=== PATIENT | female | born 1945 | race Caucasian/White ===

== ENCOUNTER 2016-08-16 04:14 | Inpatient (IN) | payer MEDICARE ==
[2016-08-05 10:36] LABS: HEMATOCRIT 40.5 % (36.0-48.0); HEMOGLOBIN 13.3 g/dL (12.0-16.0)
[2016-08-05 10:46] LABS: BUN (BLOOD UREA NITROGEN) 13 MG/DL (6-23); CALCIUM, SERUM 8.8 MG/DL (8.5-10.4); CHLORIDE, SERUM 100 MMOL/L (96-112); CO2 (CARBON DIOXIDE) 29 MMOL/L (24-34); CREATININE 0.84 MG/DL (0.55-1.02); GFR AFRICAN AMERICAN 80 ML/MIN (>=60); GFR NON AFRICAN AMERICAN 69 ML/MIN (>=60); GLUCOSE, SERUM 150 MG/DL (60-99); POTASSIUM, SERUM 3.7 MMOL/L (3.5-5.3); SODIUM, SERUM 137 MMOL/L (135-148)
--- NOTE | ~2016-08-16 | OP ---
Record Of Operation [facility] [address] [place]. [address] NAME: MISTY FONG : 43 STATUS : ADM IN PAT#: [id number] AGE: 71 ADM/REG DATE : 08/16/16 MR#: [id number] REPORT SERV DATE: 08/18/16 DICTATED BY: NAOMI VILLASENOR II DATE: 08/18/16 REPORT STATUS : Draft TRANSCRIBED BY: MODJerod DATE: 08/18/16 DATE OF PROCEDURE: 08/16/2016 PREOPERATIVE DIAGNOSES: 1. Right lower extremity radiculopathy. 2. L4-5 stenosis, L5-S1 stenosis. 3. L5-S1 spondylolisthesis. POSTOPERATIVE DIAGNOSES: 1. Right lower extremity radiculopathy. 2. L4-5 stenosis, L5-S1 stenosis. 3. L5-S1 spondylolisthesis. PROCEDURE: 1. Lumbar laminectomy and facetectomy, L4-5, L5-S1. 2. Posterolateral arthrodesis, L4-5, L5-S1. 3. Posterior segmental instrumentation, L4-5, L5-S1. 4. Use of local autograft, allograft substitute, and bone morphogenic protein. 5. Use of the microscope and stereotactic spinal imaging. SURGEON: Naomi Villasenor M.D. FLUIDS: 1300 mL LR. ESTIMATED BLOOD LOSS: 100 mL. DRAINS: One drain. COMPLICATIONS: A tiny flash of CSF (1 mm durotomy), repaired primarily. PREOPERATIVE HISTORY: This is a very friendly 71-year-old female, who reports severe pain radiating from the right buttock and the right leg. She had some pain on the left, but not as severe. We discussed the pros and cons of continuing nonoperative care versus surgery. DESCRIPTION OF PROCEDURE: After informed consent was obtained, the patient was brought to the operating room at her request, and general anesthesia achieved. She was placed in the prone position. The back was prepped and draped in a sterile fashion. The stereotactic spinal pin was placed on the left. The intraoperative CT scan was completed. The minimally invasive incision was now performed on the right at L4-5 and L5-S1. The microscope was brought into place and under microscopic visualization with the assistance of stereotactic guidance, the laminectomy and facetectomy was carried out at L4-5. Surprisingly, we identified quite severe compression of the thecal sac including the L4 and L5 nerve roots. This was more severe than I had suspected based on the MRI. The MRI did show stenosis, but not to this severe degree. The L4 and L5 nerve roots were well decompressed. This took a significant amount of time. The spinal laminar junction was also fully taken down to allow access to the central canal. We did encounter a 1 mm durotomy on the dorsal lateral aspect Record Of Operation [facility] [address] [place]. [address] NAME: MISTY FONG : 43 STATUS : ADM IN PAT#: [id number] AGE: 71 ADM/REG DATE : 08/16/16 MR#: [id number] REPORT SERV DATE: 08/18/16 DICTATED BY: NAOMI VILLASENOR II DATE: 08/18/16 REPORT STATUS : Draft TRANSCRIBED BY: KSENIA DATE: 08/18/16 at L4-5. The Nurolon stitch was placed. The dura was friable as anticipated given her age. We were able to obtain a reasonable closure. At this point, we then worked down to the L5-S1 level where the facet was removed and the L5 and S1 nerve roots well decompressed. The area was now fully irrigated. Pedicle screws were now applied bilaterally. Percutaneous screws were placed on the left. A CT scan was then performed. Unfortunately, it showed the hardware being slightly inferior at all three levels. This likely was due to some issue with the stereotactic system. We then revise this instrumentation and the screws now found to be more acceptably placed. The rods were then well assembled and final tightening performed. The local autograft, allograft substitute, and bone morphogenic protein were then placed over the decorticated surfaces at L4, L5, and the sacral ala. A deep drain was placed followed by standard closure. The patient was then extubated and transferred to PACU in stable condition. HUGO/KSENIA Naomi Villasenor II, M.D. / [id number] CC: Brett Leslie II, M.D.
--- NOTE | ~2016-08-16 | DS ---
Discharge Summary [facility] [address] [place]. [address] NAME: MISTY FONG : 43 STATUS : DIS IN PAT#: [id number] AGE: 71 ADM/REG DATE : 08/16/16 MR#: [id number] REPORT SERV DATE: 08/31/16 DICTATED BY: NAOMI VILLASENOR II DATE: 08/30/16 REPORT STATUS : Draft TRANSCRIBED BY: KSENIA DATE: 08/30/16 Data Collection from hospitalization DISCHARGE DIAGNOSIS(ES): 1. Right lower extremity radiculopathy. 2. L4-5 stenosis, L5-S1 stenosis. 3. L5-S1 spondylolisthesis. 4. Type 2 diabetes mellitus. 5. Hypertension. 6. Gastroesophageal reflux disease. 7. Hyperthyroidism. 8. Osteoporosis. 9. Coronary artery disease. CONSULTATIONS: Daniel Jones NP PROCEDURES PERFORMED: 1. Lumbar laminectomy and facetectomy, L4-5 L5-S1. Posterolateral arthrodesis, L4-5, L5- S1. Posterior segmental instrumentation, L4-5, L5-S1. Use of local autograft, allograft substitute, and bone morphogenic protein. Use of microscope and stereotactic spinal imaging, 08/16/2016. 2. CT scan of the lumbar spine without contrast, 08/19/2016. PATHOLOGY: Tissue from lumbar spine area - benign skeletal muscle and soft tissue, bone and cartilage. Medullary bone with bone marrow particles with trilineage hematopoiesis. No metastatic malignancy or lymphoid or plasma cell neoplasm. MEDICATIONS: Fosamax 70 mg every seven days, aspirin 162 mg every evening, Ziac one tablet twice a day, vitamin D3 of 1000 units daily, Valium 2 mg every six hours as needed, Neurontin 600 mg every eight hours, Synthroid 50 mcg every morning, Glucophage 500 mg with supper, Prilosec 20 mg daily as needed, Percocet 10/325 one to two tablets every four hours as needed, penicillin VK 500 mg four times a day, Klor-Con 10 mEq every morning, Altace 2.5 mg every morning, and Crestor 20 mg every day at bedtime. CONDITION AT DISCHARGE: Stable. DISPOSITION: The patient was discharged home on a 2200-calorie diabetic diet with activities as instructed. She would follow up with me, 09/10/2016. HOSPITAL COURSE: This is a 71-year-old female who had been complaining of lumbar spine related symptoms. The symptoms were located in the lower back with radiation into the right hip and lower extremity with associated tingling. The patient has right lower extremity radiculopathy as well as L4-5 stenosis and L5-S1 stenosis. There is also L5-S1 spondylolisthesis. Treatment options were discussed, and it was elected to proceed with surgical intervention. She was admitted to the hospital at this time for further evaluation and treatment. Upon admission, she was taken to the operating room where she underwent the above-mentioned Discharge Summary [facility] [address] [place]. [address] NAME: MISTY FONG : 43 STATUS : DIS IN PAT#: [id number] AGE: 71 ADM/REG DATE : 08/16/16 MR#: [id number] REPORT SERV DATE: 08/31/16 DICTATED BY: NAOMI VILLASENOR II DATE: 08/30/16 REPORT STATUS : Draft TRANSCRIBED BY: KSENIA DATE: 08/30/16 procedure. She tolerated this well. There were no complications. On postop day #1, she was seen by Daniel Jones regarding medical management. She had developed nausea and vomiting since surgery. This seemed to be controlled with Zofran. She has type 2 diabetes mellitus, hypertension, gastroesophageal reflux disease, hyperthyroidism, osteoporosis, and coronary artery disease. At this time, her medical conditions were stable. However, we were going to monitor them during her hospital course. Zofran was continued. We were going to add Marinol. She was receiving level 1 sliding scale insulin. She normally takes metformin at home. This was on hold at this time. We encouraged her to mobilize. On postop day #2, she complained of persistent right lower extremity radiculopathy. The patient had failed to mention right foot drop since the first time she was out of bed. Neurontin was added to her regimen. She had no further nausea or vomiting. White blood cell count was 13.9. Blood pressure was controlled. Her nausea and vomiting had resolved. She was evaluated by Physical Therapy. Over the next couple of days, discharge planning was performed. She continued to progress. White count decreased to 11.7. Discharge planning was performed. She continued to have some active vomiting. She was started on a new pain medication. Level 2 sliding scale insulin continued. [place] was on hold. She did meet all of her physical therapy goals. She was ambulating with her family. On 08/21/2016, she was alert and cooperative. She remained stable. She had no further vomiting. Discharge instructions were given. Due to her improved and stable condition, she was discharged home with the above-stated instructions. Information collected by: Jennyfer Bhardwaj I submit the above information as my discharge summary. HARDY/KSENIA Naomi Villasenor II, M.D. / [id number] CC: Brett Leslie II, M.D.
--- NOTE | ~2016-08-16 | CN ---
Consultation Report [facility] [address] [place]. [address] NAME: MISTY FONG : 43 STATUS : ADM IN [facility]#: [id number] AGE: 71 ADM/REG DATE : 08/16/16 MR#: [id number] REPORT SERV DATE: 08/17/16 DICTATED BY: DATE: REPORT STATUS : Draft TRANSCRIBED BY: MODL DATE: 08/17/16 CONSULTATION DATE OF CONSULTATION: CONSULTATION REASON: Medical management. HISTORY OF PRESENT ILLNESS: This is a pleasant 71-year-old female, who is status post L4-S1 PSFI, postop day 1. She has developed nausea and vomiting since the surgery, which seems to be controlled at this time with Zofran. Primary Team is adding Marinol to help with her nausea. She does have an extensive past medical history, including diabetes mellitus type 2, GERD, hypertension, hyperthyroidism, osteoporosis, coronary artery disease. At this time, her medical conditions are stable; however, we monitor them during her hospital course. PAST MEDICAL HISTORY: As mentioned above, the patient has diabetes mellitus type 2, gastroesophageal reflux disease, hypertension, hyperthyroidism, osteoporosis, coronary artery disease, remote history of multiple UTIs. PAST SURGICAL HISTORY: Includes a thyroidectomy, CABG, coronary artery stent placement, bilateral carpal tunnel release, cholecystectomy, hysterectomy, blepharectomy, and bilateral cataract surgery. SOCIAL HISTORY: The patient denies tobacco, alcohol, or illicit drug use. FAMILY HISTORY: Mother had diabetes mellitus, hypertension, heart failure, coronary artery disease. Her father had coronary artery disease, hypertension. Her brother has coronary artery disease. CURRENT MEDICATIONS: Altace 2.5 mg p.o. daily, Colace 100 mg p.o. b.i.d., Lipitor 40 mg p.o. at bedtime, Pen-Vee K 500 mg p.o. four times daily, potassium chloride 10 mEq p.o. daily, Synthroid 50 mcg p.o. daily, vitamin D 1000 units p.o. daily, bisoprolol/hydrochlorothiazide 2.5/6.25 mg tablet p.o. twice daily. She is on NovoLog level 1 sliding scale. ALLERGIES: LORTAB. PHYSICAL EXAMINATION: VITAL SIGNS: Temperature is 97.6, respirations 18, O2 saturation 97%, blood pressure 119/78, pulse 78. GENERAL: The patient is awake, alert, conversing appropriately. She is in no acute distress at this time. CV: S1 and S2 are present. Regular rhythm. No murmurs, rubs, or gallops were noted. LUNGS: Crackles were noted at her bases, otherwise lungs were clear. RESPIRATORY: Rate is within normal limits. Consultation Report [facility] [address] [place]. [address] NAME: MISTY FONG : 43 STATUS : ADM IN PAT#: [id number] AGE: 71 ADM/REG DATE : 08/16/16 MR#: [id number] REPORT SERV DATE: 08/17/16 DICTATED BY: DATE: REPORT STATUS : Draft TRANSCRIBED BY: MODL DATE: 08/17/16 NECK: No JVD was noted. Bruits are absent. NEURO: Cranial nerves 2-12 were grossly intact. Alert and oriented x4. ABDOMEN: Soft, nontender. Bowel sounds are decreased, but present. EXTREMITIES: TEDs and SCDs are present in lower extremities. She does have some trace edema. Good color, movements, and sensation present. Dressing is clean, dry, and intact to low back. ASSESSMENT: 1. Status post L4-S1 PSFI, this will be managed by the Primary Team, Dr. Villasenor. 2. Nausea and vomiting. We will continue the Zofran as well as add Marinol per the primary team for her nausea and vomiting. Currently, this is controlled. She just ate breakfast and is able to hold it down. If her nausea, vomiting does persist, we should consider changing her [employer] pump from Dilaudid to something else such as morphine as well as adding other antiemetic medications. 3. Diabetes mellitus type 2. The patient is on a sliding scale level 1. Her blood sugars are ranging from 134 to 202. She normally takes metformin at home. I will hold this at this time considering we do not know the current creatinine level. On 08/05/2016, it was 0.84, however because of her nausea, vomiting, and change in fluid status, we will recheck this in the morning prior to initiating metformin. 4. Coronary artery disease, status post CABG in 2009 as well as cardiac stents in 2013. The patient is taking Lipitor, Altace, and Ziac. We will continue these medications. She denies chest pain at this time. 5. Gastroesophageal reflux disease. She is not currently taking pharmacological agent for this. We will add Zantac p.r.n. in case the patient does develop some reflux during her hospital stay. 6. Hypertension. This is controlled with her home medications. We will continue these and monitor her blood pressure. 7. The patient has had a "tooth infection" recently, which was diagnosed three weeks ago. Apparently, the patient's dentist and Dr. Villasenor have decided that it would be prudent to continue Pen-Vee K p.o. through her hospital stay and surgery course. So, we will continue his medication while she is here in the hospital. Thank you for the consultation. We will follow along with the patient. DENY/KSENIA Daniel Jones NP / [id number] CC: Erasmo Villasenor II, M.D. Consultation Report [address] [address] NAME: MISTY FONG : 43 STATUS : ADM IN [facility]#: [id number] AGE: 71 ADM/REG DATE : 08/16/16 MR#: [id number] REPORT SERV DATE: 08/17/16 DICTATED BY: DATE: REPORT STATUS : Draft TRANSCRIBED BY: MODL DATE: 08/17/16 Gustabo Lin MD
[~2016-08-16 04:14] MED LIST: ALTA2.5 PO; CALTRA600D PO; COMPLETE SENIOR PO; CRESTOR20 MG PO; CRESTOR40 MG PO; FISH-EPA1000 MG PO; FOSAMAX70 MG PO; GLUCPH PO; HALF81 PO; KLOR-CON 1010 MEQ PO; KLOR-CON M2020 MEQ PO; PENICILLN VK500 MG PO; PRAVAC PO; PRAVACHOL40 MG PO; PRILOSEC OTC20 MG PO; SYN.05 PO; SYN1 PO; VITAMIN C500 M3 PO; VITAMIN D1000 UNI1 PO; VITAMIN D31000 UNIT PO; VITD PO; ZIAC2 PO
[2016-08-18 04:50] LABS: BASOPHILS 0 %; EOSINOPHILS 0.1 %; EOSINOPHILS ABSOLUTE 0.01 10/3/uL (0.0-0.53); HEMOGLOBIN 10.9 g/dL (12.0-16.0); IMMATURE GRANULOCYTES 0.3 %; IMMATURE GRANULOCYTES ABSOLUTE 0.04 10/3/uL (0.0-0.11); LYMPHOCYTES 10.8 %; MEAN CORPUS HGB CONC 33.3 g/dL (32.0-36.0); MEAN CORPUSCULAR HEMOGLOB 30.3 pg (26.0-34.0); MEAN CORPUSCULAR VOLUME 90.8 fL (80-100); MEAN PLATELET VOLUME 9.5 fL (9.2-13.0); MONOCYTES 8.3 %; MONOCYTES ABSOLUTE 1.15 10/3/uL (0.21-1.20); NEUTROPHILS 80.5 %; NEUTROPHILS ABSOLUTE 11.18 10/3/uL (2.02-8.40); PLATELET COUNT 206 10/3/uL (150-400); RBC DISTRIBUTION WIDTH 13.6 % (12.0-16.0)
[2016-08-18 04:53] LABS: HEMATOCRIT 32.7 % (36.0-48.0); MANUAL DIFF NO %; WHITE BLOOD CELLS 13.9 10/3/uL (4.5-10.5)
[2016-08-18 05:13] LABS: BUN (BLOOD UREA NITROGEN) 14 MG/DL (6-23); CHLORIDE, SERUM 104 MMOL/L (96-112); CO2 (CARBON DIOXIDE) 28 MMOL/L (24-34); CREATININE 0.79 MG/DL (0.55-1.02); GFR AFRICAN AMERICAN 87 ML/MIN (>=60); GFR NON AFRICAN AMERICAN 75 ML/MIN (>=60); GLUCOSE, SERUM 152 MG/DL (60-99); PHOSPHORUS, SERUM 1.8 MG/DL (2.5-4.5); POTASSIUM, SERUM 3.9 MMOL/L (3.5-5.3); SODIUM, SERUM 140 MMOL/L (135-148)
[2016-08-18 05:17] LABS: CALCIUM, SERUM 8.5 MG/DL (8.5-10.4)
[2016-08-20 04:53] LABS: BASOPHILS 0.1 %; BASOPHILS ABSOLUTE 0.01 10/3/uL (0.0-0.16); EOSINOPHILS ABSOLUTE 0.12 10/3/uL (0.0-0.53); HEMATOCRIT 34.7 % (36.0-48.0); HEMOGLOBIN 11.6 g/dL (12.0-16.0); IMMATURE GRANULOCYTES 0.8 %; IMMATURE GRANULOCYTES ABSOLUTE 0.09 10/3/uL (0.0-0.11); LYMPHOCYTES 26.6 %; LYMPHOCYTES ABSOLUTE 3.11 10/3/uL (0.67-4.30); MEAN CORPUS HGB CONC 33.4 g/dL (32.0-36.0); MEAN CORPUSCULAR HEMOGLOB 30.4 pg (26.0-34.0); MEAN CORPUSCULAR VOLUME 91.1 fL (80-100); MEAN PLATELET VOLUME 9.5 fL (9.2-13.0); MONOCYTES 8.2 %; MONOCYTES ABSOLUTE 0.96 10/3/uL (0.21-1.20); NEUTROPHILS 63.3 %; NEUTROPHILS ABSOLUTE 7.41 10/3/uL (2.02-8.40); PLATELET COUNT 231 10/3/uL (150-400); RBC DISTRIBUTION WIDTH 13.5 % (12.0-16.0); RED CELL COUNT 3.81 10/6/uL (4.0-5.6); WHITE BLOOD CELLS 11.7 10/3/uL (4.5-10.5)
[2016-08-20 04:54] LABS: MANUAL DIFF NO %
[2016-08-20 13:08] LABS: BUN (BLOOD UREA NITROGEN) 18 MG/DL (6-23); CALCIUM, SERUM 8.7 MG/DL (8.5-10.4); CHLORIDE, SERUM 102 MMOL/L (96-112); CO2 (CARBON DIOXIDE) 27 MMOL/L (24-34); CREATININE 0.68 MG/DL (0.55-1.02); GFR AFRICAN AMERICAN 101 ML/MIN (>=60); GFR NON AFRICAN AMERICAN 87 ML/MIN (>=60); GLUCOSE, SERUM 108 MG/DL (60-99); PHOSPHORUS, SERUM 2.1 MG/DL (2.5-4.5); POTASSIUM, SERUM 3.6 MMOL/L (3.5-5.3); SODIUM, SERUM 139 MMOL/L (135-148)
[2016-08-21 05:10] LABS: BUN (BLOOD UREA NITROGEN) 17 MG/DL (6-23); CALCIUM, SERUM 8.7 MG/DL (8.5-10.4); CHLORIDE, SERUM 98 MMOL/L (96-112); CO2 (CARBON DIOXIDE) 30 MMOL/L (24-34); GFR AFRICAN AMERICAN 100 ML/MIN (>=60); GFR NON AFRICAN AMERICAN 87 ML/MIN (>=60); GLUCOSE, SERUM 129 MG/DL (60-99); POTASSIUM, SERUM 3.9 MMOL/L (3.5-5.3); SODIUM, SERUM 136 MMOL/L (135-148)
[2016-08-21 05:11] LABS: BASOPHILS 0.2 %; BASOPHILS ABSOLUTE 0.02 10/3/uL (0.0-0.16); EOSINOPHILS 2.4 %; HEMATOCRIT 35.6 % (36.0-48.0); HEMOGLOBIN 11.8 g/dL (12.0-16.0); IMMATURE GRANULOCYTES 0.6 %; IMMATURE GRANULOCYTES ABSOLUTE 0.07 10/3/uL (0.0-0.11); LYMPHOCYTES 20.2 %; LYMPHOCYTES ABSOLUTE 2.52 10/3/uL (0.67-4.30); MEAN CORPUS HGB CONC 33.1 g/dL (32.0-36.0); MEAN CORPUSCULAR HEMOGLOB 30.3 pg (26.0-34.0); MEAN CORPUSCULAR VOLUME 91.3 fL (80-100); MEAN PLATELET VOLUME 9.4 fL (9.2-13.0); MONOCYTES 8.1 %; MONOCYTES ABSOLUTE 1.01 10/3/uL (0.21-1.20); NEUTROPHILS 68.5 %; NEUTROPHILS ABSOLUTE 8.55 10/3/uL (2.02-8.40); PLATELET COUNT 243 10/3/uL (150-400); RBC DISTRIBUTION WIDTH 13.3 % (12.0-16.0); WHITE BLOOD CELLS 12.5 10/3/uL (4.5-10.5)
[2016-08-21 05:15] LABS: MANUAL DIFF NO %
[2016-08-21] MEDS ORDERED: NEUR600 PO (09:34)
[2016-08-21] MEDS ORDERED: PERCOCET 10/3251 TAB PO (09:34)
[2016-08-21] MEDS ORDERED: V2 PO (09:34)
== END 2016-08-21 13:28 | disposition home or self-care (01) | DRG 460 ==
LOC: SDC/OF 04:14 → PACU 11:08 → 3SO 14:41
PROVIDERS: Nurse Practitioner; Nurse Practitioner Acute Care; Orthopaedic Surgery
PROC: 0SG0071 Fusion of Lumbar Vertebral Joint with Autologous Tissue Substitute, Posterior Approach, Posterior Column, Open Approach (ICD-10-PCS; principal; 2016-08-16 05:45)
PROC: 0SG3071 Fusion of Lumbosacral Joint with Autologous Tissue Substitute, Posterior Approach, Posterior Column, Open Approach (ICD-10-PCS; 2016-08-16 05:45)
PROC: 4A11X4G Monitoring of Peripheral Nervous Electrical Activity, Intraoperative, External Approach (ICD-10-PCS; 2016-08-16 05:45)
DX: M51.16 Intervertebral disc disorders with radiculopathy, lumbar region (principal); E11.9 Type 2 diabetes mellitus without complications; I10 Essential (primary) hypertension; I25.10 Atherosclerotic heart disease of native coronary artery without angina pectoris; Z95.1 Presence of aortocoronary bypass graft; K21.9 Gastro-esophageal reflux disease without esophagitis; Z95.5 Presence of coronary angioplasty implant and graft; G47.33 Obstructive sleep apnea (adult) (pediatric); E03.9 Hypothyroidism, unspecified
CPT/HCPCS: 72131; 80048; 82962; 83735; 84100; 85014; 85018; 85025; 87641; 88304; 88311; 93005; 97116-GP; 97161-GP; 97530-GP; A9270-GY; C1713; C1768; C1769; G8978-CK-GP; G8979-CI-GP; J0360; J0690; J1885; J2250; J2270; J2405; J2710; J3010; J3370

== ENCOUNTER 2016-08-26 16:00 | Emergency (ER) | payer MEDICARE ==
[~2016-08-26 16:00] MED LIST changes: +NEUR600 PO; +PERCOCET 10/3251 TAB PO; +V2 PO
[2016-08-27] MEDS ORDERED: VITAMIN D31000 UNIT PO (12:15)
[2016-08-27] MEDS ORDERED: NEUR600 PO (12:16)
[2016-08-27] MEDS ORDERED: HALF81 PO (12:16)
[2016-08-27] MEDS ORDERED: PERCOCET 10/3251 TAB PO (12:17)
[2016-08-27] MEDS ORDERED: KLOR-CON 1010 MEQ PO (12:18)
[2016-08-27] MEDS ORDERED: GLUMETZA500 MG PO (12:18)
[2016-08-27] MEDS ORDERED: SYN.05 PO (12:18)
[2016-08-27] MEDS ORDERED: PENICILLN VK500 MG PO (12:18)
[2016-08-27] MEDS ORDERED: OTC NASAL SPRAY NAS (12:19)
[2016-08-27] MEDS ORDERED: ZIAC2 PO (12:19)
[2016-08-27] MEDS ORDERED: ALTA2.5 PO (12:19)
[2016-08-27] MEDS ORDERED: CRESTOR10 PO (12:19)
== END 2016-08-26 17:00 | disposition home or self-care (01) ==
LOC: ER 16:00
DX: S39.012A Strain of muscle, fascia and tendon of lower back, initial encounter (principal); S76.012A Strain of muscle, fascia and tendon of left hip, initial encounter; S76.011A Strain of muscle, fascia and tendon of right hip, initial encounter; S93.401A Sprain of unspecified ligament of right ankle, initial encounter; E11.9 Type 2 diabetes mellitus without complications; I25.2 Old myocardial infarction; I10 Essential (primary) hypertension; Z95.5 Presence of coronary angioplasty implant and graft; Z90.49 Acquired absence of other specified parts of digestive tract; Z88.5 Allergy status to narcotic agent; Z79.899 Other long term (current) drug therapy; Z79.82 Long term (current) use of aspirin; Z79.84 Long term (current) use of oral hypoglycemic drugs; W19.XXXA Unspecified fall, initial encounter
CPT/HCPCS: 72100; 73521; 73610-RT; 99283

== ENCOUNTER 2016-08-27 10:49 | Inpatient (IN) | payer MEDICARE ==
--- NOTE | ~2016-08-27 | HP ---
History And Physical [address] [place]. [address] NAME: MISTY FONG : 43 STATUS : ADM IN [facility]#: [id number] AGE: 71 ADM/REG DATE : 08/27/16 MR#: [id number] REPORT SERV DATE: 08/27/16 DICTATED BY: SOFY ROJAS DATE: 08/27/16 REPORT STATUS : Draft TRANSCRIBED BY: MODL DATE: 08/27/16 DATE OF ADMISSION: 08/27/2016 IDENTIFYING DATA: A 71-year-old white female, whose PCP is Dr. Arabella Tirado, Orthospine Dr. Erasmo Villasenor, Cardiology Dr. Malhotra. CHIEF COMPLAINT: Confusion and possible shortness of breath. HISTORY OF PRESENT ILLNESS: This history of present illness is obtained by talking with the patient and her and daughter at the bedside. I also spoke to the ER physician, Dr. Bean. I reviewed [employer] and [employer]. Also, talked to the ER nurse and reviewed the ER records. The patient was just here in the hospital for surgery with Dr. Villasenor on 08/16/2016. She had a right lower extremity radiculopathy. She underwent lumbar laminectomy and facetectomy, L4-L5, L5-S1, posterolateral arthrodesis, posterior segmental instrumentation, use of allograft and allograft substitute and bone morphogenic protein. Postop, the patient reportedly had nausea and vomiting. One of our associates saw the patient in consultation at that time. The patient was on potent narcotics through a COOKER CHIP pump. At that time, according to the with the change of medication, she improved, and was able to go home. He thinks on 08/21/2016, he states that she has been eating fairly well, and that she was doing fairly well at home, but on 08/24/2016, she was in some slippery socks, slipped, ended up sitting down hard on her buttocks. He does not think she hit her head. They heard her fall. They went into the room. The daughter found her conscious. They talked with Dr. Villasenor's nurse on the phone and they were going to go on 08/25/2016 to the office to get some x-rays, but she also had some pain in her ankle, so instead they came to the emergency room yesterday on 08/26/2016. X-ray of the right ankle reportedly showed no abnormalities. X-ray of hips revealed no fracture or dislocation. No significant degenerative changes. X-ray of the lumbar spine showed an acute compression fracture of T11 with a 50% loss of height, this was not noticed on the CT of the LS spine, 08/19/2016, the hardware from the recent surgery was noted. The patient was released home. The states after she went home from her surgery on 08/21/2016, she was newly on Percocet and gabapentin. He stated that, it made her excessively drowsy. As a result, he has been cutting it down, giving her about half doses. Last night, he states she was very restless, continually trying to get up out of bed, could not say why she was confused, and at times, she will complain of shortness of breath and chest discomfort, then she would blow out really hard with her mouth, and she would hit her chest, and he would ask her why and she would state, she did not know why. Blood pressures were elevated at home. Because of these changes, he brought her to the emergency room at [facility]. Here in the ER, she vomited once, she had not vomited at home. She was found to have severe hyponatremia and hypokalemia and elevated white blood count, and we are asked to see her. REVIEW OF SYSTEMS: She has had urine incontinence since her spine surgery. She has been using her incentive spirometry. She has had no bowel movement since 08/21/2016 according to the . She History And Physical [address] [place]. [address] NAME: MISTY FONG : 43 STATUS : ADM IN [facility]#: [id number] AGE: 71 ADM/REG DATE : 08/27/16 MR#: [id number] REPORT SERV DATE: 08/27/16 DICTATED BY: SOFY ROJAS DATE: 08/27/16 REPORT STATUS : Draft TRANSCRIBED BY: MODJerod DATE: 08/27/16 has had a new right footdrop on the right side and surgery and now has a brace to wear for that. She and family deny any recent fever, sore throat, cough, chest pain, abdominal pain, rectal bleeding, melena, dysuria, hesitancy of urination, rash or back pain complains. PAST MEDICAL HISTORY: They state that hydrocodone, she is intolerant to it, makes her crazy. She has no history of asthma, COPD, stroke, seizure, peptic ulcer, liver disease, chronic kidney disease, cancer. She has had coronary artery disease with bypass in 2009 and stent in 2013. She has a history of hypertension. She also has diabetes mellitus type 2. She has a history of reflux and hypothyroidism. She has diabetes mellitus type 2. She has obstructive sleep apnea, wears CPAP. HOME MEDICATIONS: Aspirin 162 mg daily, Ziac 2.5/6.25 p.o. daily, vitamin D 1000 units daily, gabapentin 300 mg q.4 hours (originally was prescribed as 600 mg q.8 hours), Synthroid 50 mcg daily, metformin extended release 500 mg every supper, Percocet 10/325 she has taken about a half every two hours p.r.n. pain originally prescribed as one or two every four hours p.r.n. pain, Pen VK 500 mg q.6 hours, KCl 10 mEq daily, Altace 2.5 mg daily, Crestor 10 mg at bedtime, and some [id number] nasal spray. PAST SURGICAL HISTORY: She has had previous cholecystectomy. She had a recent lumbar spine surgery, coronary bypass, partial thyroidectomy, bilateral carpal tunnel release, hysterectomy, blepharoplasty, bilateral carotid surgery. SOCIAL HISTORY: She has no current or past alcohol or tobacco history. She is . She uses a walker currently, in a brace on that right foot. 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 She lives at home with her . FAMILY HISTORY: Mother with hypertension, diabetes, coronary artery disease, and congestive heart failure. Dad with history of coronary artery disease, heart attack, and hypertension. Siblings with myocardial infarction in the past. DIAGNOSTIC DATA: Chest x-ray done as a single portable film reveals a shallow inspiratory size, which somewhat makes the right hemidiaphragm look elevated, lung german themselves are clear. Cardiac silhouette looks normal per my interpretation. EKG done today at 1039 hours interpreted by me, reveals sinus rhythm. She has T-wave inversion V1 through V6 and flattening laterally and prolonged QT interval. Sodium 112, potassium 3.4, chloride 76, CO2 is 25, BUN 7, creatinine 0.6, glucose 160, calcium 8.5. CMP is normal otherwise, besides an albumin of 3.4, lipase 146, troponin less than 0.02. White count is 19.8, hemoglobin is 13.4, platelets 253,000. Protime is 13, INR 1.0, PTT is 27.9. PHYSICAL EXAMINATION: VITAL SIGNS: Temp is 98, pulse 80, respirations 16, blood pressure 180/96, O2 saturation is 97% on room air. Most recent weight per the patient was 59.6 kilos. GENERAL: A well-developed female, who appears drowsy, but in no acute distress. HEENT: Head is atraumatic. Pupils are equal, round, and reactive to light. Extraocular motions are intact. No scleral icterus noted. Ear canals and TMs unremarkable. No History And Physical [address] [address] NAME: MISTY FONG : 43 STATUS : ADM IN [facility]#: [id number] AGE: 71 ADM/REG DATE : 08/27/16 MR#: [id number] REPORT SERV DATE: 08/27/16 DICTATED BY: SOFY ROJAS DATE: 08/27/16 REPORT STATUS : Draft TRANSCRIBED BY: KSENIA DATE: 08/27/16 inflammatory changes noted externally. Hearing normal bilaterally. Nose, noninflamed externally. Septum midline. Nares patent. Mouth, moist. Good gag. No redness of the throat, gums, or lips. NECK: Supple. No lymph node or thyroid enlargement. The carotids have good pulses. No bruits. No jugular venous distention. LUNGS: Clear to auscultation anteriorly. Mildly decreased right posterior lung base, clear in the left posterior lung base. Normal respiratory effort. HEART: Regular rate and rhythm without murmur, gallop, click, or rub. ABDOMEN: Bowel sounds positive. Soft, flat, nondistended, nontender. No masses. No organomegaly. No bruits. EXTREMITIES: Warm, good pulses. No clubbing, no cyanosis, no edema. No actively inflamed skin or joints. NEUROLOGIC: She is drowsy. She is able to tell me her full name. She knows, she is at the emergency room at [facility]. She recognized her and daughter at bedside and gave their names appropriately. She could not give me the year. She is drowsy, when I do not speak to her or tap on her shoulder. Her eyes are closed, but she is easy to awake with tactile and verbal stimuli. Her motor strength is 3/5 in her hands, 2/5 in her thighs. She has a right foot drop with no dorsiflexion. No Babinski. No clonus noted. Cranial nerves 2 through 12 are grossly normal. ASSESSMENT: 1. Acute symptomatic hyponatremia, most consistent with syndrome of inappropriate antidiuretic hormone secretion, most likely due to her pain and her pain medications. 2. Metabolic encephalopathy related to problem #1 and the gabapentin, which she is not used to. 3. Hypokalemia. 4. Elevated white count, it is most likely due to the current stress situation, but have to consider the possibility of an occult infection. 5. New T12 compression fracture. 6. See past medical history. PLAN: 1. Admit to cardiac telemetry. 2. We are going to hold her hydrochlorothiazide and I am also going to hold her opiates and her gabapentin, because she is drowsy. We will send urine at this time for sodium osmolality and also urine for urinalysis and culture. We will get two blood cultures. Going to check her TSH and serum cortisol. We will check procalcitonin and urine antigens. We will get a couple of blood cultures along with the urine culture. We will get a CT scan of the brain, since she did have a fall a couple days ago. We will replace her potassium. 3. For her sodium, because she is symptomatic and has a significant hyponatremia that appears acute, we are going to replace it. I used her weight most recently here at 59.6 kilos to calculate her total body water of 29 and the goal is to correct her sodium by 6 at the most over the next 24 hours, so we will give her approximately 400 mL over the next 24 hours of the 3% hypertonic saline, which should be 17 mL/h. We will also be checking her sodium level every four hours and having us notified if the sodium is up to 118 or greater or less than 110. and daughter are updated at History And Physical [address] [place]. [address] NAME: MISTY FONG : 43 STATUS : ADM IN PAT#: [id number] AGE: 71 ADM/REG DATE : 08/27/16 MR#: [id number] REPORT SERV DATE: 08/27/16 DICTATED BY: SOFY ROJAS DATE: 08/27/16 REPORT STATUS : Draft TRANSCRIBED BY: KSENIA DATE: 08/27/16 bedside at this time. I told the to bring in the home CPAP machine as well. RSG/KSENIA Sofy Rojas M.D. / [id number] CC: MD Arabella Craft M.D. Steven Stubblefield, M.D., F.A.C.C. Erasmo Villasenor II, M.D.
--- NOTE | ~2016-08-27 | DS ---
Discharge Summary [facility] [address] [place]. [address] NAME: MISTY FONG : 43 STATUS : ADM IN [facility]#: [id number] AGE: 71 ADM/REG DATE : 08/27/16 MR#: [id number] REPORT SERV DATE: 09/03/16 DICTATED BY: KASH SPEARS DATE: 09/02/16 REPORT STATUS : Draft TRANSCRIBED BY: MODJerod DATE: 09/02/16 ADMISSION DATE: 08/27/2016 DISCHARGE DATE: 09/03/2016 PROCEDURES DONE: 1. 08/27/2016, CT of the head without contrast, moderate cerebral atrophy with intracranial atherosclerosis. No acute intracranial process identified. 2. 08/27/2016, chest x-ray: Prior CABG. Shallow inspiration, mild discoid atelectasis, right base. 3. 08/28/2016, pelvis AP: Negative AP pelvis, partially visualized lumbosacral fusion, however, is seen with skin adrianna. 4. 08/28/2016, x-ray lumbar: No acute fracture or spondylolysis of the lumbar spine. Stable decreased vertebral body height at L1 stable since 08/26 but new since 08/19 CT lumbar spine. Stable lumbosacral fusion and cholecystectomy. 5. 08/31/2016, KUB: No ileus or obstruction suspected. Persistent bladder distention. CONSULTATION: Dr. Chris for renal. REASON FOR ADMISSION: Confusion. HISTORY OF HOSPITAL STAY: A 71-year-old white female with past medical history of coronary artery disease, status post CABG; hypertension; diabetes type 2; hypothyroid; GERD; history of GABRIELLE, on CPAP, presenting with confusion. The patient underwent a surgical procedure with Dr. Villasenor on 08/16/2016 for a right lower extremity radiculopathy. The patient was sent home with pain med that was subsequently being decreased. In addition, the patient was taking her home medications as directed. At the time of the arrival in the ER, the patient was found to be confused and noted to have a low sodium of 112. The patient was given 3% normal saline which brought the patient's sodium to 118. The patient was then given normal saline and fluid restriction to bring up the sodium. Unfortunately, the patient stayed within the 120 range. Salt tablets were started, but still the patient continued to have hyponatremia. 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 Renal was consulted regarding the SIADH and subsequently added another salt tablet for a total of salt tablets t.i.d. and also giving Lasix. Eventually, the patient's sodium slowly crept up to 129 at the time of discharge. At this point, medication might be the suspicion of causing the hyponatremia with a combination of hydrochlorothiazide and narcotics which made the patient drowsy and not able to drink enough fluids. Nonetheless, the patient also had rehabilitation requirements status post radiculopathy. PT was seeing the patient and subsequently recommended with rehab. DISPOSITION: The patient is feeling fine, no complaint. ACTIVITIES: As tolerated. DIET: Diabetic. DISCHARGE INSTRUCTIONS: Patient to follow up with primary care within one to two weeks' Discharge Summary [address] [place]. [address] NAME: MISTY FONG : 43 STATUS : ADM IN [facility]#: [id number] AGE: 71 ADM/REG DATE : 08/27/16 MR#: [id number] REPORT SERV DATE: 09/03/16 DICTATED BY: KASH SPEARS DATE: 09/02/16 REPORT STATUS : Draft TRANSCRIBED BY: KSENIA DATE: 09/02/16 time. DISCHARGE MEDICATIONS: 1. Aspirin 162 mg p.o. daily. 2. Bisoprolol 2.5 mg p.o. daily. 3. Vitamin D3 of 1000 units p.o. daily. 4. Insulin sliding scale. 5. Synthroid 50 mcg p.o. daily. 6. MiraLAX one packet p.o. daily. 7. Ramipril 5 mg p.o. daily. 8. Metformin 500 mg p.o. daily. 9. Oxycodone 5/325 p.o. t.i.d. p.r.n. 10.Crestor 10 mg p.o. at bedtime. 11.OTC nasal spray daily. DISCHARGE DIAGNOSES: 1. Confusion secondary to hyponatremia. 2. Hyponatremia secondary to syndrome of inappropriate antidiuretic hormone. 3. Syndrome of inappropriate antidiuretic hormone. 4. History of right lower extremity radiculopathy, status post laminectomy and facetectomy. 5. Hypertension. 6. Hyperlipidemia. 7. Diabetes type 2. ALBINO/KSENIA Kash Spears MD / [id number] CC: MD Arabella Craft M.D.
--- NOTE | ~2016-08-27 | CN ---
Consultation Report [facility] [address] [place]. [address] NAME: MISTY SORIANO : 43 STATUS : ADM IN [facility]#: [id number] AGE: 71 ADM/REG DATE : 08/27/16 MR#: [id number] REPORT SERV DATE: 08/31/16 DICTATED BY: DATE: REPORT STATUS : Draft TRANSCRIBED BY: MODJerod DATE: 08/31/16 CONSULT. DATE OF CONSULTATION: REASON FOR CONSULTATION: Hyponatremia. HISTORY OF PRESENT ILLNESS: Ms Soriano is a 71-year-old white female, who we are asked to see for hyponatremia. She has normal kidney function. She does give a history of some hyponatremia around the time of her bypass back in 2009, but none since. On review of records, she underwent lumbar spine surgery by Dr. Villasenor on 08/22/2016, and was discharged home on Neurontin and Percocet, which were new medications for the patient. She was also already on a hydrochlorothiazide in the form of Ziac. After getting home, the patient apparently developed confusion, weakness, and was not eating well but no nausea or vomiting, had problems with constipation and was brought back to the emergency department on 08/27/2016, with confusion and shortness of breath and found to have a sodium of 116. On the day of that admission, her urine sodium was 67, so hydrochlorothiazide was stopped. Her pain medications were held, which include the Percocet and Neurontin, and it looks as though on review of the records initially the patient was given some 3% saline, not quite sure of how much because of the orders, and it was started and re-stopped several times on 08/27/2016, so I do not think that she got very much in the way of 3%. During her admission for the lumbar spine surgery, her sodium was completely normal. Sodium went from 112 to 116 initially, by 08/28/2016, it was up to 120, it stayed around 118 to 120, and today it remains 120 and that is the reason for the consultation. The only medicine she has been on since 08/27/2016, is salt tablets, but only at 1 g b.i.d. She also got some normal saline. Per the family at bedside, her confusion is improved today, however, her weakness continues. PAST MEDICAL HISTORY: Coronary artery disease, status post bypass in 2010, hypertension, type 2 diabetes, reflux, obstructive sleep apnea, hypothyroidism; and she has had a cholecystectomy, partial thyroidectomy, and carpal tunnel surgery. FAMILY MEDICAL HISTORY: Hypertension, coronary artery disease, CHF. SOCIAL HISTORY: She is , lives with her . No tobacco, alcohol, or illicit drug use. MEDICATIONS: At the time of this consultation: Aspirin, Lipitor, Zebeta, Rocephin, Lovenox, Neurontin, vitamin D, NovoLog, Synthroid, Glucophage, potassium, MiraLAX, Altace, salt tablets 1 g b.i.d. and is through mouth, and normal saline at 30. REVIEW OF SYSTEMS: 12-point review of systems obtained and negative with the exception of that in HPI. PHYSICAL EXAMINATION: Consultation Report [address] [place]. [address] NAME: MISTY SORIANO : 43 STATUS : ADM IN [facility]#: [id number] AGE: 71 ADM/REG DATE : 08/27/16 MR#: [id number] REPORT SERV DATE: 08/31/16 DICTATED BY: DATE: REPORT STATUS : Draft TRANSCRIBED BY: MODL DATE: 08/31/16 VITAL SIGNS: Temp 96.7, blood pressure 139/79, pulse 74, respiratory rate 16, O2 sat is 96%. GENERAL: This is a pleasant, cooperative, white female. She is awake, alert, and oriented x3. No acute distress. Answers questions appropriately. HEENT: Normocephalic and atraumatic. Conjunctivae clear. Sclerae anicteric. Pupils are equal and round. Oral mucosa is dry. NECK: Supple. I did not see any neck vein distention. No lymphadenopathy. LUNGS: Respirations are even and unlabored. Breath sounds clear to auscultation. HEART: Rate is regular. I did not hear any murmur, rub, or gallop. ABDOMEN: Soft and nontender. Bowel sounds active. No masses. No hepatosplenomegaly. No bruits. No CVA tenderness. BACK: Within normal limits. EXTREMITIES: No edema, cyanosis, or clubbing. She does have right footdrop. SKIN: Warm, dry, and intact. No unusual rash or skin lesions. NEURO: Generalized weakness. No focal deficits with the exception of the right footdrop. PERTINENT LABS AND X-RAYS: She has had chest x-ray, which was negative. CT of the brain shows moderate atrophy. Lumbar spine surgery negative. Pelvic x-ray negative. WBC is 12, H and H 11 and 31, platelets 330,000. Sodium 120, potassium 2.7, chloride 87, CO2 of 24, BUN of 5, creatinine of 0.35, calcium is 7.6, magnesium 1.7, phosphorus of 1.2, albumin of 3. IMPRESSION: 1. Hyponatremia. 2. Encephalopathy. 3. Lumbar spine surgery, on 08/22/2016. 4. Hypertension. 5. Type 2 diabetes. 6. Coronary artery disease, status post bypass. 7. Hypokalemia. PLAN/RECOMMENDATIONS: Hyponatremia looks to be SIADH due to combination of medications including hydrochlorothiazide, Neurontin, and narcotics both can cause hyponatremia, and we will stop the Neurontin, and back on some Percocet p.r.n., and we will increase salt tablets and give her a dose of Lasix with caution given her electrolyte abnormalities. She has already had some potassium this morning. We will go ahead and give some more potassium, and also we will give her a little dose of magnesium as well as a sodium phosphate if her phosphorus has not been replaced, although it looks as though it has. We will recheck sodium and follow along with you. Thank you for the consultation. SAMAN/KSENIA Consultation Report [address] [address] NAME: MISTY SORIANO : 43 STATUS : ADM IN PAT#: [id number] AGE: 71 ADM/REG DATE : 08/27/16 MR#: [id number] REPORT SERV DATE: 08/31/16 DICTATED BY: DATE: REPORT STATUS : Draft TRANSCRIBED BY: KSENIA DATE: 08/31/16 JOYCE Sheppard / [id number] CC: MD Arabella Craft M.D.
[2016-08-27 11:29] LABS: BASOPHILS 0.1 %; BASOPHILS ABSOLUTE 0.02 10/3/uL (0.0-0.16); EOSINOPHILS 0.3 %; EOSINOPHILS ABSOLUTE 0.05 10/3/uL (0.0-0.53); ER CBC TAT 0 Hrs 05 Mins; HEMATOCRIT 37.7 % (36.0-48.0); HEMOGLOBIN 13.4 g/dL (12.0-16.0); IMMATURE GRANULOCYTES 1.2 %; IMMATURE GRANULOCYTES ABSOLUTE 0.24 10/3/uL (0.0-0.11); MANUAL DIFF NO %; MEAN CORPUS HGB CONC 35.5 g/dL (32.0-36.0); MEAN CORPUSCULAR HEMOGLOB 30.4 pg (26.0-34.0); MEAN CORPUSCULAR VOLUME 85.5 fL (80-100); MEAN PLATELET VOLUME 8.4 fL (9.2-13.0); MONOCYTES 5.5 %; NEUTROPHILS 86.9 %; NEUTROPHILS ABSOLUTE 17.23 10/3/uL (2.02-8.40); PLATELET COUNT 253 10/3/uL (150-400); RBC DISTRIBUTION WIDTH 12.6 % (12.0-16.0); RED CELL COUNT 4.41 10/6/uL (4.0-5.6); WHITE BLOOD CELLS 19.8 10/3/uL (4.5-10.5)
[2016-08-27 11:49] LABS: ALBUMIN 3.4 G/DL (3.5-5.0); ALKALINE PHOSPHATASE 111 U/L (45-117); BUN (BLOOD UREA NITROGEN) 7 MG/DL (6-23); CALCIUM, SERUM 8.5 MG/DL (8.5-10.4); CHLORIDE, SERUM 76 MMOL/L (96-112); CO2 (CARBON DIOXIDE) 25 MMOL/L (24-34); GFR AFRICAN AMERICAN 106 ML/MIN (>=60); GFR NON AFRICAN AMERICAN 91 ML/MIN (>=60); GLOBULIN 3.4 G/DL (2.5-4.1); GLUCOSE, SERUM 160 MG/DL (60-99); POTASSIUM, SERUM 3.4 MMOL/L (3.5-5.3); SGOT(AST) 29 U/L (5-40); SGPT(ALT) 45 U/L (5-65); SODIUM, SERUM 112 MMOL/L (135-148); TOTAL BILIRUBIN 1.1 MG/DL (0-1.2); TOTAL PROTEIN 6.8 G/DL (6.0-8.5); TROPONIN I <0.02 NG/ML (<0.05)
[2016-08-27] MEDS ORDERED: VITAMIN D31000 UNIT PO (12:15)
[2016-08-27] MEDS ORDERED: NEUR600 PO (12:16)
[2016-08-27] MEDS ORDERED: HALF81 PO (12:16)
[2016-08-27] MEDS ORDERED: PERCOCET 10/3251 TAB PO (12:17)
[2016-08-27] MEDS ORDERED: PENICILLN VK500 MG PO (12:18)
[2016-08-27] MEDS ORDERED: GLUMETZA500 MG PO (12:18)
[2016-08-27] MEDS ORDERED: KLOR-CON 1010 MEQ PO (12:18)
[2016-08-27] MEDS ORDERED: SYN.05 PO (12:18)
[2016-08-27] MEDS ORDERED: ALTA2.5 PO (12:19)
[2016-08-27] MEDS ORDERED: CRESTOR10 PO (12:19)
[2016-08-27] MEDS ORDERED: OTC NASAL SPRAY NAS (12:19)
[2016-08-27] MEDS ORDERED: ZIAC2 PO (12:19)
[2016-08-27 14:26] LABS: ASCORBIC ACID (UR NOT ORDER) NEG (NEG); BILIRUBIN, URINE NEGATIVE (NEG); ER URINALYSIS TAT 0 Hrs 15 Mins; KETONE, URINE 20 MG/DL (NEG); LEUKOCYTE ESTERASE(NOT OR NEG (NEG); NITRITE (URINE) NEG (NEG); WBC (NOT ORDERED) (RFLEX) 1 (0-5)
[2016-08-27 14:32] LABS: PROCALCITONIN 0.09 ng/mL (<0.5)
[2016-08-27 14:35] LABS: B NATRIURETIC PEPTIDE (BNP) 76.6 PG/ML (< 100.0)
[2016-08-27 18:51] LABS: BUN (BLOOD UREA NITROGEN) 7 MG/DL (6-23); CALCIUM, SERUM 8.3 MG/DL (8.5-10.4); CHLORIDE, SERUM 80 MMOL/L (96-112); CO2 (CARBON DIOXIDE) 24 MMOL/L (24-34); CREATININE 0.55 MG/DL (0.55-1.02); GFR AFRICAN AMERICAN 109 ML/MIN (>=60); GFR NON AFRICAN AMERICAN 94 ML/MIN (>=60); GLUCOSE, SERUM 160 MG/DL (60-99); POTASSIUM, SERUM 3.2 MMOL/L (3.5-5.3); TROPONIN I <0.02 NG/ML (<0.05)
[2016-08-27 18:56] LABS: SODIUM, SERUM 116 MMOL/L (135-148)
[2016-08-27 21:25] LABS: GLYCOHEMOGLOBIN (HbA1c) 6.6 % (4.7-6.1)
[2016-08-27 21:30] LABS: BUN (BLOOD UREA NITROGEN) 8 MG/DL (6-23); CALCIUM, SERUM 8.2 MG/DL (8.5-10.4); CHLORIDE, SERUM 82 MMOL/L (96-112); CO2 (CARBON DIOXIDE) 24 MMOL/L (24-34); CREATININE 0.47 MG/DL (0.55-1.02); GFR AFRICAN AMERICAN 114 ML/MIN (>=60); GFR NON AFRICAN AMERICAN 99 ML/MIN (>=60); GLUCOSE, SERUM 138 MG/DL (60-99); POTASSIUM, SERUM 3.1 MMOL/L (3.5-5.3); SODIUM, SERUM 116 MMOL/L (135-148)
[2016-08-28 01:25] LABS: BUN (BLOOD UREA NITROGEN) 7 MG/DL (6-23); CALCIUM, SERUM 8.1 MG/DL (8.5-10.4); CHLORIDE, SERUM 81 MMOL/L (96-112); CO2 (CARBON DIOXIDE) 26 MMOL/L (24-34); CREATININE 0.43 MG/DL (0.55-1.02); GFR AFRICAN AMERICAN 118 ML/MIN (>=60); GFR NON AFRICAN AMERICAN 102 ML/MIN (>=60); GLUCOSE, SERUM 145 MG/DL (60-99)
[2016-08-28 01:26] LABS: POTASSIUM, SERUM 2.8 MMOL/L (3.5-5.3); SODIUM, SERUM 115 MMOL/L (135-148)
[2016-08-28 06:24] LABS: BASOPHILS 0.1 %; BASOPHILS ABSOLUTE 0.01 10/3/uL (0.0-0.16); EOSINOPHILS 0.4 %; EOSINOPHILS ABSOLUTE 0.07 10/3/uL (0.0-0.53); HEMATOCRIT 37.9 % (36.0-48.0); HEMOGLOBIN 13.6 g/dL (12.0-16.0); IMMATURE GRANULOCYTES 0.8 %; IMMATURE GRANULOCYTES ABSOLUTE 0.14 10/3/uL (0.0-0.11); LYMPHOCYTES 9.2 %; LYMPHOCYTES ABSOLUTE 1.53 10/3/uL (0.67-4.30); MANUAL DIFF NO %; MEAN CORPUS HGB CONC 35.9 g/dL (32.0-36.0); MEAN CORPUSCULAR HEMOGLOB 30.3 pg (26.0-34.0); MEAN CORPUSCULAR VOLUME 84.4 fL (80-100); MEAN PLATELET VOLUME 8.7 fL (9.2-13.0); MONOCYTES 7.8 %; MONOCYTES ABSOLUTE 1.29 10/3/uL (0.21-1.20); NEUTROPHILS 81.7 %; NEUTROPHILS ABSOLUTE 13.53 10/3/uL (2.02-8.40); PLATELET COUNT 308 10/3/uL (150-400); RBC DISTRIBUTION WIDTH 12.7 % (12.0-16.0); RED CELL COUNT 4.49 10/6/uL (4.0-5.6); WHITE BLOOD CELLS 16.6 10/3/uL (4.5-10.5)
[2016-08-28 06:26] LABS: BUN (BLOOD UREA NITROGEN) 7 MG/DL (6-23); CALCIUM, SERUM 8.1 MG/DL (8.5-10.4); CHLORIDE, SERUM 84 MMOL/L (96-112); CREATININE 0.58 MG/DL (0.55-1.02); GFR AFRICAN AMERICAN 107 ML/MIN (>=60); GFR NON AFRICAN AMERICAN 92 ML/MIN (>=60); GLUCOSE, SERUM 161 MG/DL (60-99)
[2016-08-28 06:27] LABS: CO2 (CARBON DIOXIDE) 21 MMOL/L (24-34); POTASSIUM, SERUM 4.3 MMOL/L (3.5-5.3); SODIUM, SERUM 116 MMOL/L (135-148)
[2016-08-28 09:24] LABS: BUN (BLOOD UREA NITROGEN) 7 MG/DL (6-23); CALCIUM, SERUM 8.3 MG/DL (8.5-10.4); CHLORIDE, SERUM 87 MMOL/L (96-112); CO2 (CARBON DIOXIDE) 20 MMOL/L (24-34); CREATININE 0.53 MG/DL (0.55-1.02); GFR AFRICAN AMERICAN 110 ML/MIN (>=60); GFR NON AFRICAN AMERICAN 95 ML/MIN (>=60); GLUCOSE, SERUM 175 MG/DL (60-99); SODIUM, SERUM 117 MMOL/L (135-148)
[2016-08-28 10:27] LABS: OSMOLALITY, URINE 418 MOSM/KG (50-1200)
[2016-08-28 10:30] LABS: SODIUM, URINE 67 MEQ/L
[2016-08-28 13:28] LABS: BUN (BLOOD UREA NITROGEN) 7 MG/DL (6-23); CALCIUM, SERUM 8.5 MG/DL (8.5-10.4); CHLORIDE, SERUM 87 MMOL/L (96-112); CO2 (CARBON DIOXIDE) 21 MMOL/L (24-34); CREATININE 0.42 MG/DL (0.55-1.02); GFR AFRICAN AMERICAN 119 ML/MIN (>=60); GFR NON AFRICAN AMERICAN 102 ML/MIN (>=60); GLUCOSE, SERUM 149 MG/DL (60-99); POTASSIUM, SERUM 3.8 MMOL/L (3.5-5.3); SODIUM, SERUM 118 MMOL/L (135-148)
[2016-08-28 20:05] LABS: BUN (BLOOD UREA NITROGEN) 7 MG/DL (6-23); CALCIUM, SERUM 8.1 MG/DL (8.5-10.4); CHLORIDE, SERUM 86 MMOL/L (96-112); CO2 (CARBON DIOXIDE) 21 MMOL/L (24-34); CREATININE 0.46 MG/DL (0.55-1.02); GFR AFRICAN AMERICAN 115 ML/MIN (>=60); GFR NON AFRICAN AMERICAN 99 ML/MIN (>=60); GLUCOSE, SERUM 165 MG/DL (60-99); POTASSIUM, SERUM 3.3 MMOL/L (3.5-5.3); SODIUM, SERUM 118 MMOL/L (135-148)
[2016-08-29 00:10] LABS: BUN (BLOOD UREA NITROGEN) 6 MG/DL (6-23); CHLORIDE, SERUM 88 MMOL/L (96-112); CO2 (CARBON DIOXIDE) 19 MMOL/L (24-34); CREATININE 0.34 MG/DL (0.55-1.02); GFR AFRICAN AMERICAN 127 ML/MIN (>=60); GFR NON AFRICAN AMERICAN 110 ML/MIN (>=60); SODIUM, SERUM 120 MMOL/L (135-148)
[2016-08-29 00:15] LABS: GLUCOSE, SERUM 113 MG/DL (60-99); POTASSIUM, SERUM 3.7 MMOL/L (3.5-5.3)
[2016-08-29 09:27] LABS: ALBUMIN 3.2 G/DL (3.5-5.0); BUN (BLOOD UREA NITROGEN) 5 MG/DL (6-23); CALCIUM, SERUM 7.6 MG/DL (8.5-10.4); CHLORIDE, SERUM 85 MMOL/L (96-112); CREATININE 0.35 MG/DL (0.55-1.02); GFR AFRICAN AMERICAN 126 ML/MIN (>=60); GFR NON AFRICAN AMERICAN 109 ML/MIN (>=60); SODIUM, SERUM 120 MMOL/L (135-148); TRIGLYCERIDE 178 MG/DL (< 150)
[2016-08-29 09:29] LABS: CHOL/HDL RATIO(NOT ORDER) 2.6 (0-5); CHOLESTEROL 138 MG/DL (< 200); CO2 (CARBON DIOXIDE) 23 MMOL/L (24-34); GLUCOSE, SERUM 148 MG/DL (60-99); HDL CHOLESTEROL 53 MG/DL (> 49); LDL CHOLESTEROL 50 MG/DL (< 130); NON-HDL CHOLESTEROL 85 MG/DL (< 160); PHOSPHORUS, SERUM 1.1 MG/DL (2.5-4.5); POTASSIUM, SERUM 2.6 MMOL/L (3.5-5.3)
[2016-08-29 09:46] LABS: BASOPHILS 0.1 %; BASOPHILS ABSOLUTE 0.01 10/3/uL (0.0-0.16); EOSINOPHILS 0.2 %; EOSINOPHILS ABSOLUTE 0.03 10/3/uL (0.0-0.53); HEMOGLOBIN 12.6 g/dL (12.0-16.0); IMMATURE GRANULOCYTES 0.7 %; LYMPHOCYTES 9.3 %; LYMPHOCYTES ABSOLUTE 1.38 10/3/uL (0.67-4.30); MEAN CORPUS HGB CONC 36.7 g/dL (32.0-36.0); MEAN CORPUSCULAR HEMOGLOB 30.4 pg (26.0-34.0); MEAN CORPUSCULAR VOLUME 82.9 fL (80-100); MEAN PLATELET VOLUME 8.5 fL (9.2-13.0); MONOCYTES 6.3 %; MONOCYTES ABSOLUTE 0.93 10/3/uL (0.21-1.20); NEUTROPHILS 83.4 %; NEUTROPHILS ABSOLUTE 12.37 10/3/uL (2.02-8.40); PLATELET COUNT 272 10/3/uL (150-400); RBC DISTRIBUTION WIDTH 12.9 % (12.0-16.0); RED CELL COUNT 4.14 10/6/uL (4.0-5.6); WHITE BLOOD CELLS 14.8 10/3/uL (4.5-10.5)
[2016-08-29 09:48] LABS: MANUAL DIFF NO %
[2016-08-29 10:06] LABS: BUN (BLOOD UREA NITROGEN) 5 MG/DL (6-23); CALCIUM, SERUM 7.6 MG/DL (8.5-10.4); CHLORIDE, SERUM 85 MMOL/L (96-112); CO2 (CARBON DIOXIDE) 25 MMOL/L (24-34); CREATININE 0.44 MG/DL (0.55-1.02); GFR AFRICAN AMERICAN 117 ML/MIN (>=60); GFR NON AFRICAN AMERICAN 101 ML/MIN (>=60); SODIUM, SERUM 119 MMOL/L (135-148)
[2016-08-29 10:07] LABS: GLUCOSE, SERUM 184 MG/DL (60-99); POTASSIUM, SERUM 2.7 MMOL/L (3.5-5.3)
[2016-08-29 10:14] LABS: PLATELET ESTIMATE ADQ (ADEQUATE)
[2016-08-29 10:15] LABS: BURR CELLS 1+ (3-10/OIF) (0-2/OIF)
[2016-08-29 13:38] LABS: BUN (BLOOD UREA NITROGEN) 6 MG/DL (6-23); CALCIUM, SERUM 7.8 MG/DL (8.5-10.4); CHLORIDE, SERUM 87 MMOL/L (96-112); CO2 (CARBON DIOXIDE) 23 MMOL/L (24-34); CREATININE 0.44 MG/DL (0.55-1.02); GFR AFRICAN AMERICAN 117 ML/MIN (>=60); GFR NON AFRICAN AMERICAN 101 ML/MIN (>=60); GLUCOSE, SERUM 149 MG/DL (60-99); POTASSIUM, SERUM 2.9 MMOL/L (3.5-5.3); SODIUM, SERUM 118 MMOL/L (135-148)
[2016-08-29 23:00] LABS: BUN (BLOOD UREA NITROGEN) 6 MG/DL (6-23); CALCIUM, SERUM 7.5 MG/DL (8.5-10.4); CHLORIDE, SERUM 92 MMOL/L (96-112); CREATININE 0.36 MG/DL (0.55-1.02); GFR AFRICAN AMERICAN 125 ML/MIN (>=60); GFR NON AFRICAN AMERICAN 108 ML/MIN (>=60); SODIUM, SERUM 122 MMOL/L (135-148)
[2016-08-29 23:01] LABS: CO2 (CARBON DIOXIDE) 18 MMOL/L (24-34); GLUCOSE, SERUM 117 MG/DL (60-99); POTASSIUM, SERUM 3.7 MMOL/L (3.5-5.3)
[2016-08-30 01:25] LABS: BUN (BLOOD UREA NITROGEN) 6 MG/DL (6-23); CALCIUM, SERUM 7.6 MG/DL (8.5-10.4); CHLORIDE, SERUM 89 MMOL/L (96-112); CO2 (CARBON DIOXIDE) 22 MMOL/L (24-34); CREATININE 0.33 MG/DL (0.55-1.02); GFR AFRICAN AMERICAN 128 ML/MIN (>=60); GFR NON AFRICAN AMERICAN 111 ML/MIN (>=60); GLUCOSE, SERUM 132 MG/DL (60-99); POTASSIUM, SERUM 2.8 MMOL/L (3.5-5.3); SODIUM, SERUM 121 MMOL/L (135-148)
[2016-08-30 06:43] LABS: BASOPHILS 0.1 %; BASOPHILS ABSOLUTE 0.01 10/3/uL (0.0-0.16); EOSINOPHILS 0.3 %; EOSINOPHILS ABSOLUTE 0.04 10/3/uL (0.0-0.53); HEMOGLOBIN 12.9 g/dL (12.0-16.0); IMMATURE GRANULOCYTES 0.7 %; LYMPHOCYTES 9.5 %; LYMPHOCYTES ABSOLUTE 1.42 10/3/uL (0.67-4.30); MANUAL DIFF NO %; MEAN CORPUS HGB CONC 37.4 g/dL (32.0-36.0); MEAN CORPUSCULAR HEMOGLOB 30.6 pg (26.0-34.0); MEAN CORPUSCULAR VOLUME 81.9 fL (80-100); MEAN PLATELET VOLUME 8.3 fL (9.2-13.0); MONOCYTES ABSOLUTE 1.04 10/3/uL (0.21-1.20); NEUTROPHILS 82.4 %; NEUTROPHILS ABSOLUTE 12.35 10/3/uL (2.02-8.40); PLATELET COUNT 288 10/3/uL (150-400); RBC DISTRIBUTION WIDTH 13.1 % (12.0-16.0); RED CELL COUNT 4.21 10/6/uL (4.0-5.6)
[2016-08-30 07:09] LABS: A/G RATIO 1.1 (0.7-1.9); ALBUMIN 3.3 G/DL (3.5-5.0); ALKALINE PHOSPHATASE 120 U/L (45-117); BUN (BLOOD UREA NITROGEN) 4 MG/DL (6-23); CALCIUM, SERUM 7.8 MG/DL (8.5-10.4); CHLORIDE, SERUM 88 MMOL/L (96-112); CO2 (CARBON DIOXIDE) 20 MMOL/L (24-34); CREATININE 0.31 MG/DL (0.55-1.02); GFR AFRICAN AMERICAN 131 ML/MIN (>=60); GFR NON AFRICAN AMERICAN 113 ML/MIN (>=60); GLUCOSE, SERUM 134 MG/DL (60-99); SGOT(AST) 16 U/L (5-40); SGPT(ALT) 31 U/L (5-65); TOTAL BILIRUBIN 0.7 MG/DL (0-1.2); TOTAL PROTEIN 6.3 G/DL (6.0-8.5)
[2016-08-30 07:10] LABS: PHOSPHORUS, SERUM 0.8 MG/DL (2.5-4.5); SODIUM, SERUM 119 MMOL/L (135-148)
[2016-08-30 11:32] LABS: BASOPHILS 0.1 %; BASOPHILS ABSOLUTE 0.01 10/3/uL (0.0-0.16); EOSINOPHILS 0.1 %; EOSINOPHILS ABSOLUTE 0.01 10/3/uL (0.0-0.53); HEMATOCRIT 33.7 % (36.0-48.0); HEMOGLOBIN 12.2 g/dL (12.0-16.0); IMMATURE GRANULOCYTES 0.6 %; LYMPHOCYTES ABSOLUTE 1.04 10/3/uL (0.67-4.30); MEAN CORPUS HGB CONC 36.2 g/dL (32.0-36.0); MEAN CORPUSCULAR HEMOGLOB 29.9 pg (26.0-34.0); MEAN CORPUSCULAR VOLUME 82.6 fL (80-100); MEAN PLATELET VOLUME 8.2 fL (9.2-13.0); MONOCYTES 8.4 %; MONOCYTES ABSOLUTE 1.45 10/3/uL (0.21-1.20); NEUTROPHILS 84.8 %; NEUTROPHILS ABSOLUTE 14.69 10/3/uL (2.02-8.40); PLATELET COUNT 304 10/3/uL (150-400); RBC DISTRIBUTION WIDTH 12.9 % (12.0-16.0); RED CELL COUNT 4.08 10/6/uL (4.0-5.6); WHITE BLOOD CELLS 17.3 10/3/uL (4.5-10.5)
[2016-08-30 11:34] LABS: MANUAL DIFF NO %
[2016-08-31 06:38] LABS: A/G RATIO 1.2 (0.7-1.9); BUN (BLOOD UREA NITROGEN) 5 MG/DL (6-23); CALCIUM, SERUM 7.6 MG/DL (8.5-10.4); CHLORIDE, SERUM 87 MMOL/L (96-112); CO2 (CARBON DIOXIDE) 24 MMOL/L (24-34); CREATININE 0.35 MG/DL (0.55-1.02); GFR AFRICAN AMERICAN 126 ML/MIN (>=60); GFR NON AFRICAN AMERICAN 109 ML/MIN (>=60); GLOBULIN 2.5 G/DL (2.5-4.1); GLUCOSE, SERUM 144 MG/DL (60-99); SGOT(AST) 17 U/L (5-40); SGPT(ALT) 26 U/L (5-65); SODIUM, SERUM 120 MMOL/L (135-148); TOTAL BILIRUBIN 0.6 MG/DL (0-1.2); TOTAL PROTEIN 5.5 G/DL (6.0-8.5)
[2016-08-31 06:39] LABS: ALKALINE PHOSPHATASE 98 U/L (45-117); PHOSPHORUS, SERUM 1.2 MG/DL (2.5-4.5); POTASSIUM, SERUM 2.7 MMOL/L (3.5-5.3)
[2016-08-31 06:58] LABS: BASOPHILS 0.1 %; BASOPHILS ABSOLUTE 0.01 10/3/uL (0.0-0.16); EOSINOPHILS 0.7 %; EOSINOPHILS ABSOLUTE 0.09 10/3/uL (0.0-0.53); HEMATOCRIT 31.1 % (36.0-48.0); HEMOGLOBIN 11.3 g/dL (12.0-16.0); IMMATURE GRANULOCYTES 0.6 %; IMMATURE GRANULOCYTES ABSOLUTE 0.07 10/3/uL (0.0-0.11); LYMPHOCYTES 14.2 %; LYMPHOCYTES ABSOLUTE 1.75 10/3/uL (0.67-4.30); MEAN CORPUS HGB CONC 36.3 g/dL (32.0-36.0); MEAN CORPUSCULAR HEMOGLOB 30.2 pg (26.0-34.0); MEAN CORPUSCULAR VOLUME 83.2 fL (80-100); MEAN PLATELET VOLUME 8.3 fL (9.2-13.0); MONOCYTES 7.2 %; MONOCYTES ABSOLUTE 0.88 10/3/uL (0.21-1.20); NEUTROPHILS 77.2 %; PLATELET COUNT 303 10/3/uL (150-400); RBC DISTRIBUTION WIDTH 13.1 % (12.0-16.0); RED CELL COUNT 3.74 10/6/uL (4.0-5.6); WHITE BLOOD CELLS 12.3 10/3/uL (4.5-10.5)
[2016-08-31 07:06] LABS: MANUAL DIFF NO %
[2016-08-31 18:16] LABS: ALBUMIN 3.4 G/DL (3.5-5.0); BUN (BLOOD UREA NITROGEN) 6 MG/DL (6-23); CALCIUM, SERUM 7.9 MG/DL (8.5-10.4); CHLORIDE, SERUM 91 MMOL/L (96-112); CO2 (CARBON DIOXIDE) 27 MMOL/L (24-34); GFR AFRICAN AMERICAN 112 ML/MIN (>=60); GFR NON AFRICAN AMERICAN 97 ML/MIN (>=60); GLUCOSE, SERUM 152 MG/DL (60-99); PHOSPHORUS, SERUM 1.4 MG/DL (2.5-4.5); SODIUM, SERUM 125 MMOL/L (135-148)
[2016-08-31 18:17] LABS: POTASSIUM, SERUM 3.4 MMOL/L (3.5-5.3)
[2016-09-01 06:20] LABS: BASOPHILS 0.1 %; BASOPHILS ABSOLUTE 0.01 10/3/uL (0.0-0.16); EOSINOPHILS 0.6 %; EOSINOPHILS ABSOLUTE 0.07 10/3/uL (0.0-0.53); HEMATOCRIT 33.7 % (36.0-48.0); HEMOGLOBIN 12.2 g/dL (12.0-16.0); IMMATURE GRANULOCYTES 0.5 %; IMMATURE GRANULOCYTES ABSOLUTE 0.06 10/3/uL (0.0-0.11); LYMPHOCYTES 10.5 %; LYMPHOCYTES ABSOLUTE 1.33 10/3/uL (0.67-4.30); MEAN CORPUS HGB CONC 36.2 g/dL (32.0-36.0); MEAN CORPUSCULAR HEMOGLOB 30.7 pg (26.0-34.0); MEAN CORPUSCULAR VOLUME 84.9 fL (80-100); MEAN PLATELET VOLUME 8.1 fL (9.2-13.0); MONOCYTES 6.3 %; MONOCYTES ABSOLUTE 0.79 10/3/uL (0.21-1.20); NEUTROPHILS ABSOLUTE 10.38 10/3/uL (2.02-8.40); PLATELET COUNT 316 10/3/uL (150-400); RBC DISTRIBUTION WIDTH 13.3 % (12.0-16.0); RED CELL COUNT 3.97 10/6/uL (4.0-5.6); WHITE BLOOD CELLS 12.6 10/3/uL (4.5-10.5)
[2016-09-01 06:21] LABS: MANUAL DIFF NO %
[2016-09-01 06:46] LABS: A/G RATIO 1.2 (0.7-1.9); ALBUMIN 3.2 G/DL (3.5-5.0); BUN (BLOOD UREA NITROGEN) 5 MG/DL (6-23); CALCIUM, SERUM 7.8 MG/DL (8.5-10.4); CHLORIDE, SERUM 91 MMOL/L (96-112); CO2 (CARBON DIOXIDE) 28 MMOL/L (24-34); CREATININE 0.42 MG/DL (0.55-1.02); GFR AFRICAN AMERICAN 119 ML/MIN (>=60); GFR NON AFRICAN AMERICAN 102 ML/MIN (>=60); GLOBULIN 2.6 G/DL (2.5-4.1); GLUCOSE, SERUM 134 MG/DL (60-99); PHOSPHORUS, SERUM 1.7 MG/DL (2.5-4.5); POTASSIUM, SERUM 3.3 MMOL/L (3.5-5.3); SGOT(AST) 38 U/L (5-40); SGPT(ALT) 53 U/L (5-65); SODIUM, SERUM 125 MMOL/L (135-148); TOTAL BILIRUBIN 0.5 MG/DL (0-1.2); TOTAL PROTEIN 5.8 G/DL (6.0-8.5)
[2016-09-01 06:47] LABS: ALKALINE PHOSPHATASE 116 U/L (45-117)
[2016-09-02 05:55] LABS: ALBUMIN 3.2 G/DL (3.5-5.0); BUN (BLOOD UREA NITROGEN) 7 MG/DL (6-23); CALCIUM, SERUM 8.9 MG/DL (8.5-10.4); CHLORIDE, SERUM 94 MMOL/L (96-112); CO2 (CARBON DIOXIDE) 26 MMOL/L (24-34); CREATININE 0.52 MG/DL (0.55-1.02); GFR AFRICAN AMERICAN 111 ML/MIN (>=60); GFR NON AFRICAN AMERICAN 95 ML/MIN (>=60); GLUCOSE, SERUM 127 MG/DL (60-99); PHOSPHORUS, SERUM 2.5 MG/DL (2.5-4.5); POTASSIUM, SERUM 3.6 MMOL/L (3.5-5.3); SODIUM, SERUM 129 MMOL/L (135-148)
[2016-09-03 06:29] LABS: BASOPHILS 0.3 %; BASOPHILS ABSOLUTE 0.03 10/3/uL (0.0-0.16); EOSINOPHILS 2.3 %; EOSINOPHILS ABSOLUTE 0.26 10/3/uL (0.0-0.53); HEMOGLOBIN 13.1 g/dL (12.0-16.0); IMMATURE GRANULOCYTES 0.5 %; IMMATURE GRANULOCYTES ABSOLUTE 0.06 10/3/uL (0.0-0.11); LYMPHOCYTES ABSOLUTE 2.11 10/3/uL (0.67-4.30); MEAN CORPUSCULAR HEMOGLOB 30.4 pg (26.0-34.0); MEAN PLATELET VOLUME 8.1 fL (9.2-13.0); MONOCYTES ABSOLUTE 0.89 10/3/uL (0.21-1.20); NEUTROPHILS 69.9 %; NEUTROPHILS ABSOLUTE 7.77 10/3/uL (2.02-8.40); PLATELET COUNT 406 10/3/uL (150-400); RBC DISTRIBUTION WIDTH 14.2 % (12.0-16.0); RED CELL COUNT 4.31 10/6/uL (4.0-5.6); WHITE BLOOD CELLS 11.1 10/3/uL (4.5-10.5)
[2016-09-03 06:36] LABS: ALBUMIN 3.4 G/DL (3.5-5.0); BUN (BLOOD UREA NITROGEN) 9 MG/DL (6-23); CALCIUM, SERUM 8.8 MG/DL (8.5-10.4); CHLORIDE, SERUM 93 MMOL/L (96-112); CO2 (CARBON DIOXIDE) 30 MMOL/L (24-34); CREATININE 0.68 MG/DL (0.55-1.02); GFR AFRICAN AMERICAN 101 ML/MIN (>=60); GFR NON AFRICAN AMERICAN 87 ML/MIN (>=60); GLUCOSE, SERUM 123 MG/DL (60-99); PHOSPHORUS, SERUM 3.2 MG/DL (2.5-4.5); POTASSIUM, SERUM 3.5 MMOL/L (3.5-5.3); SODIUM, SERUM 132 MMOL/L (135-148)
[2016-09-03 06:38] LABS: HEMATOCRIT 38.6 % (36.0-48.0)
[2016-09-03 06:39] LABS: MANUAL DIFF NO %; MEAN CORPUS HGB CONC 33.9 g/dL (32.0-36.0); MEAN CORPUSCULAR VOLUME 89.6 fL (80-100)
== END 2016-09-04 15:31 | DRG 643 ==
LOC: ER 10:49 → ER/OF 12:36 → 7NO 13:37
PROVIDERS: Emergency Medicine; Hospitalist; Nurse Practitioner
DX: E22.2 Syndrome of inappropriate secretion of antidiuretic hormone (principal); G93.41 Metabolic encephalopathy; E87.6 Hypokalemia; I10 Essential (primary) hypertension; E78.5 Hyperlipidemia, unspecified; E11.9 Type 2 diabetes mellitus without complications; E03.9 Hypothyroidism, unspecified; K21.9 Gastro-esophageal reflux disease without esophagitis; G47.33 Obstructive sleep apnea (adult) (pediatric); Z98.1 Arthrodesis status; Z95.1 Presence of aortocoronary bypass graft; Z95.5 Presence of coronary angioplasty implant and graft; Z79.82 Long term (current) use of aspirin; Z79.84 Long term (current) use of oral hypoglycemic drugs; S39.012A Strain of muscle, fascia and tendon of lower back, initial encounter; S76.011A Strain of muscle, fascia and tendon of right hip, initial encounter; S93.401A Sprain of unspecified ligament of right ankle, initial encounter; W19.XXXA Unspecified fall, initial encounter
CPT/HCPCS: 70450; 71010; 72100; 72170; 73521; 73610-RT; 74000; 80048; 80053; 80061; 80069; 81001; 82533; 82962; 83036; 83690; 83735; 83880; 83935; 84100; 84132; 84133; 84145; 84300; 84443; 84484; 85025; 85610; 87040; 87449; 93005; 96374; 97110-GP; 97112-GO; 97116-GP; 97162-GP; 97166-GO; 99285; A9270-GY; G8978-CL-GP; G8979-CK-GP; G8980-CK-GP; G8987-CL-GO; G8988-CK-GO; J0360; J0456; J2405; J3475